=== PATIENT | female | born 1990 | race African-American/Black ===

== ENCOUNTER 2020-05-27 14:34 | Emergency (ER) | payer OTHER ==
[2020-05-27] MEDS ORDERED: IBUPROFEN 600 MG TABLET PO STA (14:51)
--- NOTE | 2020-05-27 14:56 | ED Physician Documentation ---
PD HPI MAJOR TRAUMA - Stated complaint Stated Complaint: CHEST INJ - Chief complaint Chief Complaint: Wound - History obtained from History obtained from: Patient - History of Present Illness Mechanism of injury: Blow (hit with a toy in upper anterior chest yesterday with persistent pain) Where injury occurred: Work (a daycare) Review of Systems Constitutional: reports: Reviewed and negative Eyes: reports: Reviewed and negative Ears: reports: Reviewed and negative PD PAST MEDICAL HISTORY - Past Medical History Past Medical History: No - Social History Does the pt smoke?: No Smoking Status: Never smoker PD ED PE NORMAL - Vitals Vital signs reviewed: Yes - General General: Alert and oriented X 3, No acute distress - Neck Neck: Supple, no meningeal sign, No bony TTP - Cardiac Cardiac: RRR, No murmur, Other (Mild tenderness to the medial right clavicle and upper sternum without deformity or limited range of motion of the shoulders.) - Respiratory Respiratory: No respiratory distress, Clear bilaterally - Abdomen Abdomen: Non tender - Neuro Neuro: Alert and oriented X 3, Normal speech Results - Vitals Vitals: Vital Signs - 24 hr 05/27/20 14:40 Temperature 36.7 C Heart Rate 83 Respiratory 14 Rate Blood Pressure 102/69 O2 Saturation 99 - Rads (name of study) Of the right clavicle and sternum. Radiology: EMP read contemporaneously (Radiologist felt there was suggestion of an AC separation, clinically she has no tenderness of the AC joint or limited range of motion of the shoulder.) Departure - Departure Disposition: 01 Home, Self Care Clinical Impression: Chest wall contusion Qualifiers: Encounter type: initial encounter Laterality: right Qualified Code(s): S20.211A - Contusion of right front wall of thorax, initial encounter Condition: Good Record reviewed to determine appropriate education?: Yes Instructions: ED Contusion Chest Wall Comments: Ibuprofen as needed for pain. Return if for new or worsening symptoms. Follow- up with your doctor in a week if not better. Forms: Activity restrictions
--- NOTE | 2020-05-27 16:10 | XRAY Report ---
PROCEDURE: Clavicle RT INDICATIONS: chest inj TECHNIQUE: 2 views of the clavicle were acquired. COMPARISON: None. FINDINGS: Bones: No fractures or dislocations. There is slight depression of acromion in relation to distal c lavicle concerning for moderate to high-grade AC separation. No suspicious bony lesions. Soft tissues: No suspicious soft tissue calcifications. IMPRESSION: No acute fracture or dislocation. Suggestion of moderate to high-grade right AC separation. Reviewed by: Chay Subramanian MD on 05/27/2020 4:09 PM PDT Approved by: Chay Subramanian MD on 05/27/2020 4:09 PM PDT Station ID: [id number]
--- NOTE | 2020-05-27 16:10 | XRAY Report ---
PROCEDURE: Sternum INDICATIONS: chest inj TECHNIQUE: 2 views of the sternum acquired. COMPARISON: None FINDINGS: Bones: No fractures or dislocations. No suspicious bony lesions. Soft tissues: Retrosternal soft tissues appear normal. IMPRESSION: No gross acute sternal fracture. Visualized lung duarte are clear. Reviewed by: Chay Subramanian MD on 05/27/2020 4:08 PM PDT Approved by: Chay Subramanian MD on 05/27/2020 4:08 PM PDT Station ID: [id number]
[2020-05-27 16:31] VITALS: BP 110/72
== END 2020-05-27 16:33 | disposition home or self-care (01) ==
LOC: ED 14:34
DX: S20.211A Contusion of right front wall of thorax, initial encounter (principal); W20.8XXA Other cause of strike by thrown, projected or falling object, initial encounter; Y92.210 Daycare center as the place of occurrence of the external cause; Y99.0 Civilian activity done for income or pay
CPT/HCPCS: 71120; 73000; 99283; A9270

== ENCOUNTER 2021-04-21 08:21 | Emergency (ER) | payer OTHER ==
[2021-04-21 08:37] VITALS: BP 114/73
[2021-04-21] MEDS ORDERED: CHERRY SYRUP 10 ML UDC PO ONE (08:58)
[2021-04-21] MEDS ORDERED: DEXAMETHASONE 10 MG/ML VIAL PO STA (08:58)
[2021-04-21] MEDS ORDERED: IBUPROFEN 800 MG TABLET PO STA (08:58)
--- NOTE | 2021-04-21 09:06 | ED Physician Documentation ---
History of Present Illness - Stated complaint Stated Complaint: NAUSEA/HEAD PX - Chief complaint Chief Complaint: General - History obtained from History obtained from: Patient - History of Present Illness Timing: Today Pain level max: 5 Pain level now: 5 - Additonal information Additional information: Patient is a 30-year-old female who presents to the emergency department with rhinorrhea, congestion, coughing and sore throat. Started today. States her T- max at home was 104. She states she has a gradual onset frontal headache. Has not taken anything for this. Nothing makes it better. Worse with swallowing. Daughter is sick with same. Patient has had her Covid vaccinations. Review of Systems Constitutional: denies: Fever, Chills GI: denies: Vomiting, Diarrhea Skin: denies: Rash Musculoskeletal: denies: Neck pain, Back pain Neurologic: denies: Headache PD PAST MEDICAL HISTORY - Past Medical History Past Medical History: No - Past Surgical History Past Surgical History: Yes /IMPLEMENTATION LEAD: section - Present Medications Home Medications: Ambulatory Orders Medication Instructions Recorded Confirmed Benzonatate [Tessalon] 200 mg PO TID PRN #30 cap 04/21/21 Cetirizine HCl/Pseudoephedrine 1 each PO BID PRN #30 ea 04/21/21 [Zyrtec-D Tablet] Ibuprofen [Motrin] 800 mg PO Q8H PRN #30 tablet 04/21/21 - Allergies Allergies/Adverse Reactions: Allergies Allergy/AdvReac Type Severity Reaction Status Date / Time No Known Drug Allergies Allergy Verified 04/21/21 08:36 - Social History Does the pt smoke?: No Smoking Status: Never smoker Does the pt drink ETOH?: No Does the pt have substance abuse?: No PD ED PE NORMAL - Vitals Vital signs reviewed: Yes - General General: Alert and oriented X 3, No acute distress - HEENT HEENT: Moist mucous membranes, Other (Posterior oropharyngeal erythema without tonsillar exudates.) - Neck Neck: Supple, no meningeal sign - Cardiac Cardiac: RRR - Respiratory Respiratory: No respiratory distress, Clear bilaterally - Abdomen Abdomen: Soft, Non tender, Non distended - Derm Derm: Warm and dry - Extremities Extremities: No edema - Neuro Neuro: Alert and oriented X 3 - Psych Psych: Normal mood, Normal affect Results - Vitals Vitals: Vital Signs - 24 hr 04/21/21 08:28 Temperature 36.4 C L Heart Rate 89 Respiratory 16 Rate Blood Pressure 114/73 O2 Saturation 98 Oxygen O2 Source Room air - Labs Labs: Laboratory Tests 04/21/21 09:06 Group A Strep Rapid Negative - Rads (name of study) cxr Radiology: Final report received, EMP read contemporaneously, See rad report (no acute disease) PD MEDICAL DECISION MAKING - ED course Complexity details: reviewed results, re-evaluated patient, considered differential, d/w patient ED course: Patient is well-appearing, nontoxic. Afebrile. No hypoxia. No respiratory distress. We will have her follow-up with her doctor for further care. Covid test pending. Symptoms seem more consistent with a rhinovirus at this time. Patient counseled regarding signs and symptoms for which I believe and urgent re-evaluation would be necessary. Patient with good understanding of and agreement to plan and is comfortable going home at this time This document was made in part using voice recognition software. While efforts are made to proofread this document, sound alike and grammatical errors may occur. Departure - Departure Disposition: 01 Home, Self Care Clinical Impression: Viral URI Condition: Good Instructions: ED Viral Syndrome Follow-Up: GEOVANNI FINN MD [Primary Care Provider] - Within 1 week Prescriptions: Ibuprofen [Motrin] 800 mg PO Q8H PRN #30 tablet PRN Reason: PAIN &/OR FEVER Benzonatate [Tessalon] 200 mg PO TID PRN #30 cap PRN Reason: Cough Cetirizine HCl/Pseudoephedrine [Zyrtec-D Tablet] 1 each PO BID PRN #30 ea PRN Reason: nasal congestion Comments: Your rapid strep test is negative. Your Covid test is pending. Your x-ray does not show any acute abnormalities. Continue to drink plenty of fluids and rest. Please quarantine yourself until your Covid test is negative. Return if you worsen. Discharge Date/Time: 04/21/21 10:51
[2021-04-21 09:32] LABS: RAPID STREP SCREEN Negative (Negative)
--- NOTE | 2021-04-21 09:35 | XRAY Report ---
PROCEDURE: Chest 2 View X-Ray INDICATIONS: cough TECHNIQUE: 2 view(s) of the chest. COMPARISON: None. FINDINGS: Surgical changes and devices: None. Lungs and pleura: No pleural effusions or pneumothorax. Lungs are clear. Mediastinum: Mediastinal contours are normal. Heart size is normal. Bones and chest wall: No suspicious bony abnormalities. Soft tissues appear unremarkable. IMPRESSION: Negative chest Reviewed by: Federico Castellanos MD on 04/21/2021 9:34 AM PDT Approved by: Federico Castellanos MD on 04/21/2021 9:34 AM PDT Station ID: [id number]
== END 2021-04-21 10:51 | disposition home or self-care (01) ==
LOC: ED 08:21
DX: B34.9 Viral infection, unspecified (principal); Z20.822 Contact with and (suspected) exposure to COVID-19
CPT/HCPCS: 71046; 87070; 87430; 87635; 99284; A9270